=== PATIENT | female | born 1960 | race Caucasian/White ===

== ENCOUNTER → 2019-01-15 | Outpatient (CLI) | payer OTHER ==
--- NOTE | 2019-02-06 23:42 | SLEEP ---
[address] [address] SLEEP STUDY REPORT Name: NAVI CASTRO Room: [facility]#: [id number] Admission: 01/15/19 Attend Phys: Laura Rodriguez Discharge: Date of : 62 Report #: [id number] THIS REPORT FOR: //name// CC: Cathryn Monahan DO This study has been reviewed in its entirety by a board certified sleep specialist DATE OF SERVICE: 01/16/2019 SLEEP STUDY ATTENDING PHYSICIAN: Cathryn Monahan DO The patient is 58 years old, who weighs 175 pounds with a BMI of 32. The patient's [place] score was not available. The patient underwent home sleep study performed by [facility]. Total recording time 524 minutes. During the night study, the patient had 29 obstructive apneas, 2 central apneas, 1 mixed apnea and 161 hypopneas. The patient's apnea-hypopnea index was 22 per hour with a supine index of 26 per hour. Nocturnal oximetry study revealed an average oxygen saturation of 91% with the lowest of 65%. 97 minutes were spent in oxygen saturation of less than 90% and 37 minutes with saturation of less than 85%. The patient also spent 13 minutes with saturation of less than 80%. Mean heart rate was 73 beats per minute with the maximum of 92 beats per minute. IMPRESSION: 1. Moderate sleep apnea-hypopnea syndrome at an AHI of 22 per hour. 2. Gwrgqctm-ko-henvcn nocturnal hypoxia related to obstructive sleep apnea. RECOMMENDATIONS: 1. The patient would benefit from in-lab CPAP titration study. 2. Once the patient is optimally treated with CPAP, then follow up in 4-6 weeks to assess compliance with CPAP and to document clinical improvement. 3. Weight loss is advised. 4. Avoid [employer] depressants. 5. Cautioned regarding driving until symptoms of sleep apnea resolve with the use of CPAP. <ELECTRONICALLY SIGNED> By: Adarsh Cortez MD 02/06/19 2342 [id number] Violeta Cortez MD /nt
== END ==
LOC: M.SLEEPLAB 01-14 10:00
DX: G47.33 Obstructive sleep apnea (adult) (pediatric) (principal)

== ENCOUNTER → 2019-03-07 | Outpatient (CLI) | payer OTHER ==
--- NOTE | 2019-03-12 21:13 | SLEEP ---
[address] [address] SLEEP STUDY REPORT Name: NAVI CASTRO Room: [facility]#: [id number] Admission: 03/07/19 Attend Phys: Laura Rodriguez Discharge: Date of : 62 Report #: [id number] THIS REPORT FOR: //name// CC: Cathryn Monahan DO This study has been reviewed in its entirety by a board certified sleep specialist DATE OF SERVICE: 03/07/2019 SLEEP STUDY DATE OF STUDY: 03/07/2019 ATTENDING PHYSICIAN: Cathryn Monahan DO The patient is 58 years old who weighs 173 pounds with a BMI of 30.6. The patient had a history of sleep apnea, for which the patient was referred back to the Sleep Lab for CPAP titration study. During the night study, the patient spent 403 minutes in bed and slept for 301 minutes with a sleep efficiency of 74%. Sleep latency was 67 minutes with a REM latency of 25 minutes. Overall, sleep architecture showed increased stage 1 and stage 2 sleep, normal slow wave and normal REM sleep. EKG monitoring revealed an average heart rate of 80 beats per minute. No arrhythmias observed. PLMS were seen at an index of 30 per hour and 8 per hour caused EEG arousals. The patient was started on CPAP at 5 cm of water and titrated up to 8 cm of water. At the final pressure, the patient slept for 35 minutes including 6.5 minutes of supine REM sleep. The patient's AHI was reduced to 3.4 per hour and oxygen saturation remained above 94%. IMPRESSION: 1. Sleep apnea diagnosed by previous sleep study. 2. Moderate periodic limb movements. RECOMMENDATIONS: 1. CPAP at 8 cm water completely eliminated the patient's sleep apnea and should be used on a nightly basis. 2. Follow up in 4-6 weeks to assess compliance with CPAP and to document clinical improvement. 3. [place] [address] SLEEP STUDY REPORT Name: NAVI CASTRO Room: [facility]#: [id number] Admission: 03/07/19 Attend Phys: Laura Rodriguez Discharge: Date of : 62 Report #: [id number] 4. Avoid [employer] depressants. 5. Cautioned regarding driving until symptoms of sleep apnea resolve with the use of CPAP. 6. The patient should also be further evaluated for symptoms of restless legs during the day. <ELECTRONICALLY SIGNED> By: Adarsh Cortez MD 03/12/19 2113 [id number] 1929Aemmanuel Cortez MD /nt
== END ==
LOC: M.SLEEPLAB 20:53
DX: G47.33 Obstructive sleep apnea (adult) (pediatric) (principal); E03.9 Hypothyroidism, unspecified; E66.9 Obesity, unspecified; Z68.30 Body mass index [BMI] 30.0-30.9, adult

== ENCOUNTER → 2020-05-31 | Outpatient (CLI) | payer OTHER | LOC: M.MRI 07:03 | PROVIDERS: ATTEND Family Medicine | DX: H53.40 Unspecified visual field defects (principal) ==